=== PATIENT | female | born 1985 | race African-American/Black ===

== ENCOUNTER 2017-08-28 12:41 | Day surgery (SDC) | payer OTHER ==
[2017-08-28 13:22] VITALS: BMI 29.5
[2017-08-28 14:09] LABS: BASO % 0.3 % (0-2.0); EOS % 0.8 % (0-4.5); HEMATOCRIT 36.4 % (32.4-45.2); HEMOGLOBIN 12.2 GM/dL (10.7-15.3); LYMPH % 21.4 % (8-40); MCH 28.2 pg (25.7-33.7); MCHC 33.4 g/dl (32.0-36.0); MEAN CELL VOLUME 84.6 fl (80-96); MEAN PLT VOLUME 9.2 fl (7.5-11.1); NEUT % 71.5 % (42.8-82.8); PLATELET COUNT 225 K/MM3 (134-434); RBC 4.31 M/mm3 (3.60-5.2); RDW 13.1 % (11.6-15.6); WHITE BLOOD COUNT 9.4 K/mm3 (4.0-10.0)
[2017-08-28 14:19] LABS: INR 1.01 (0.82-1.09); PROTHROMBIN TIME (PATIENT) 11.4 SEC (9.98-11.88)
[2017-08-28 14:33] LABS: ALBUMIN 3.2 g/dl (3.4-5.0); ALK PHOS 89 U/L (45-117); ANION GAP 8 (8-16); BILIRUBIN,TOTAL 0.2 mg/dL (0.2-1.0); BLOOD UREA NITROGEN 10 mg/dL (7-18); CALCIUM 8.8 mg/dL (8.5-10.1); CHLORIDE 105 mmol/L (98-107); CO2 24 mmol/L (21-32); CREATININE 0.6 mg/dL (0.55-1.02); GLUCOSE,RANDOM 82 mg/dL (74-106); POTASSIUM 4.3 mmol/L (3.5-5.1); SGOT/AST 29 U/L (15-37); SGPT/ALT 40 U/L (12-78); SODIUM 137 mmol/L (136-145); TOT PROT 7.1 g/dl (6.4-8.2)
--- NOTE | 2017-08-28 16:32 | HP ---
Past Medical History - Primary Care Physician PCP:: Gabrielle Schafer - Admission Chief Complaint: 32,h/f , 14 weeks , twin gestation , demise of both is admitted for suction d&C History of Present Illness: pt was referred from [facility] to [address] [place] [address] She was having h.o Bleeding on & off since 05/10/17, She went to ER at [facility] 07/10/17 Sono Twin gestation , A baby 6.4 wks, positive FHR, B baby 6.4 weeks Positive FHR 07/16/17 SONO A baby 7.5 weeks Pos FHR, B baby &.4 wks Pos FHR. 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: No: Alzheimer's, CVA, Dementia, Migraine, Multiple Sclerosis, Peripheral Neuropathy, Parkinson's, Seizure, Syncope, TIA, Vertigo, Other Cardiovascular: No: AFIB, Aneurysm, Aortic Insufficiency, Aortic Stenosis, CAD, CHF, Deep Vein Thrombosis, HTN, Hyperlipdemia, [place], Mitral Insufficiency, Mitral Stenosis, Murmur, Pulmonary Hypertension, Other Pulmonary: No: Asthma, Bronchitis, Cancer, COPD, O2 Dependent, Pneumonia, Previously Intubated, Pulmonary Embolus, Pulmonary Fibrosis, Sleep Apnea, Other Gastrointestinal: No: Ascites, Cancer, Constipation, Crohn's Disease, Diverticulitis, Diverticulosis, Esophageal Varices, Gastritis, GERD, GI Bleed, Hemorrhoids, Hiatal Hernia, Inflamatory Bowel Disease, Irritable Bowel Disease, Pancreatitis, Peptic Ulcer Disease, Ulcerative Colitis, Other Hepatobiliary: No: Cirrhosis, Cholelithiasis, Cholecystitis, Choledocholithiasis , Hepatitis A, Hepatitis B, Hepatitis C, Other Renal/: No: Renal Failure, Renal Inusuff, BPH, Cancer, Hematuria, Hemodialysis , Neurogenic Bladder, Renal Calculi, UTI, Other ...: 7 ...Para: 2 (2 08/06/98 & 02/07/2002) ...Term: 2 ...Spon : 2 (last 11/2016) ...Induced : 2 ...LMP: 05/24/17 ... Weeks Gestation by Dates: 14 ...EDC by Dates: 02/28/18 ...EDC by Sono: 03/01/18 (14 weeks ) Heme/Onc: Yes: Anemia Infectious Disease: Yes: STD's (h/o chlanydia in past treated) Psych: Yes: Other (declined) Musculoskeletal: No: Bursitis, Chronic low back pain, Hemiparesis, Hemiplegia, Osteoarthritis, Paraplegia, Other Rheumatology: No: Fibromyalgia, Gout, Lupus, Rheumatoid Arthritis, Sarcoidosis, Vasculitis, Other ENT: No: Allergic Rhinitis, Sinusitis, Other Endocrine: No: Rudy's Disease, Flaquito's Disease, Diabetes Insipidus, Diabetes Mellitus, Hyperparathyroidism, Hyperthyroidism, Hypothyroidism, Osteopenia, SIADH, Other Dermatology: No: Basal Cell, Cellulitis, Eczema, Melanoma, Psoriasis, Squamous Cell, Other - Past Surgical History Past Surgical History: Yes: None Hx Myomectomy: No Hx Transabdominal Cerclage: No - Smoking History Smoking history: Former smoker Have you smoked in the past 12 months: No If you are a former smoker, when did you quit?: 2016 - Alcohol/Substance Use Hx Alcohol Use: Yes (occassional) History of Substance Use: reports: None Home Medications - Allergies Allergies/Adverse Reactions: Allergies Allergy/AdvReac Type Severity Reaction Status Date / Time shellfish derived Allergy Mild Difficulty Verified 08/28/17 13:16 Breathing - Home Medications Home Medications: Ambulatory Orders Multivitamin [One Daily] 1 each PO DAILY 08/28/17 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 Exam-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 No: Cerv Motion Tenderness Uterus: Yes: Anteverted, Enlarged (10-12 weeks size), Soft Adnexa: Normal: Bilateral, Not Palpable: Bilateral Breast(s): Yes: WNL Musculoskeletal: Yes: WNL Extremities: Yes: WNL. No: Calf Tenderness Edema: No Integumentary: Yes: WNL, Tattoos Neurological: Yes: WNL ...Motor Strength: WNL Psychiatric: Yes: WNL, Alert, Oriented Labs: CBC, BMP 08/28/17 13:58 08/28/17 13:58 Laboratory Tests 08/28/17 08/28/17 13:58 13:58 PT with INR 11.40 INR 1.01 Blood Type B POSITIVE Antibody Screen Negative Problem List - Problem (1) 14 weeks gestation of Code(s): Z3A.14 - 14 WEEKS GESTATION OF (2) Missed with demise before 20 completed weeks of gestation Code(s): O02.1 - MISSED (3) Twin Code(s): Z37.9 - OUTCOME OF DELIVERY, UNSPECIFIED (4) Twin Code(s): O30.009 - TWIN , UNSP NUM PLCNTA & AMNIO SACS, UNSP TRIMESTER Qualifiers: Trimester: first trimester Assessment/Plan 32 yrs , s/p Twin demise 14 weeks by dates & 12 weeks by sono plan Yairo D&C
[2017-08-28] MEDS ORDERED: PROPOFOL 20 ML ONE ×2 (16:51)
[2017-08-28] MEDS ORDERED: MIDAZOLAM HCL 2 MG/2 ML SINGLE DOSE VIAL ONE ×2 (16:51)
[2017-08-28] MEDS ORDERED: SUCCINYLCHOLINE CHLORIDE 200 MG/10 ML VIAL ONE (16:51)
[2017-08-28] MEDS ORDERED: LIDOCAINE HCL/PF 2% SDV 5ML VIAL ONE (16:51)
[2017-08-28] MEDS ORDERED: OXYTOCIN 10 UNITS/ML VIAL ONE ×2 (17:12→18:56)
[2017-08-28] MEDS ORDERED: PROMETHAZINE HCL 25 MG/1 ML VIAL IVPUSH PRN (17:43)
[2017-08-28] MEDS ORDERED: ONDANSETRON 4 MG/2 ML VIAL IVPUSH PRN (17:43)
[2017-08-28] MEDS ORDERED: LACTATED RINGERS SOLUTION 1,000 ML IV SCH (17:45)
--- NOTE | 2017-08-28 17:47 | OP ---
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 Cx dilated upto #36 dilator , # 12 canula used contents aspirated Surgeon: Gabrielle Schafer Anesthesiologist/COIL REWIND MACHINE OPERATOR: Enrrique Jones Anesthesia: General Specimens Removed: uterine contents Estimated Blood Loss (mls): 200 Operative Report Dictated: Yes
[2017-08-28] MEDS ORDERED: IBUPROFEN 400 MG TABLET (FP) PO PRN (17:52)
[2017-08-28] MEDS ORDERED: ACETAMINOPHEN 325 MG TABLET (FP) PO PRN (17:52)
[2017-08-28] MEDS ORDERED: oxyCODONE HCL 5 MG TABLET PO PRN (17:52)
[2017-08-28] MEDS ORDERED: KETOROLAC TROMETHAMINE 60 MG/2 ML VIAL IVPUSH ONE (18:19)
[2017-08-28] MEDS ORDERED: KETOROLAC TROMETHAMINE 60 MG/2 ML VIAL IM ONE (18:19)
[2017-08-28] MEDS ORDERED: KETOROLAC TROMETHAMINE 30 MG/1 ML VIAL ONE (18:21)
[2017-08-28] MEDS ORDERED: KETOROLAC TROMETHAMINE 30 MG/1 ML VIAL IVPUSH ONE ×2 (18:41)
[2017-08-28] MEDS ORDERED: METHYLERGONOVINE MALEATE 0.2 MG/1 ML AMP IM ONE (18:47)
[2017-08-28] MEDS ORDERED: OXYTOCIN 20 UNITS in 0.9% NS 20 UNIT/1,000 ML INFUS.BAG IV ONE (18:48)
--- NOTE | 2017-08-28 19:17 | OP ---
DATE OF OPERATION: 08/28/2017 PREOPERATIVE DIAGNOSIS: A 14-week , missed , demise twin gestation. OPERATION DONE: Dilatation, suction, curettage. SURGEON: Gabrielle Schafer MD ANESTHESIOLOGIST: Enrrique Jones MD ANESTHESIA: General. FINDINGS: This is a 32-year-old 7, para 2-0-4-2, LMP on May 24, 2017, 14 weeks' gestation, was diagnosed B baby demise on August 10 sonogram and then, on August 28, 2017, sonogram, even A baby demise, absent heart was diagnosed so patient was diagnosed with missed . She had spotting and bleeding on and off back since April. PROCEDURE: Patient was taken to the operating room table and general anesthesia was given. Lithotomy position was given. Pubis, perineum, and vagina were painted with Betadine, draped in usual manner. Pelvic examination was done. Uterus was anteverted, 12-week size. Cervix was posterior. Os was closed. Time out was done before the examination and then weighted speculum was placed. Anterior lip of the cervix was held with the single-tooth tenaculum. Cervix was dilated up to number 36 dilator and number 12 cannula was introduced into the uterine cavity. Suction was done, fluid brown color was aspirated along with the contents, and after no more contents were obtained, then the curettage was done. Estimated blood loss was 200 mL, and hemostasis was checked, and instruments were removed. Examination was done, uterus was firm. Sponge and instrument count was correct. Patient tolerated procedure well, transferred to the recovery room in stable condition. Patient had genetic counseling today and she requested to send the contents for genetic workup, chromosomal study.. Donell [id number] MTDD
[2017-08-28 20:50] VITALS: BP 115/62; PULSE 72; TEMP 98.5
--- NOTE | 2017-08-31 09:36 | PATH ---
Surgical Pathology Report Patient Name: GURVINDER BRICENO [facility]. Rec. #: [id number] /Age/Gender: 1985 (Age: 32) / F Account: [id number] Location: [facility] SURGICAL Taken: 08/28/2017 Received: 08/29/2017 Reported: 08/31/2017 Physicians: Gabrielle Schafer M.D. Specimen(s) Received PRODUCTS OF CONCEPTION Clinical History demise 14 weeks twins Final Diagnosis PRODUCTS OF CONCEPTION, DEMISE 14 WEEKS, DILATION AND SUCTION CURETTAGE: PRODUCTS OF CONCEPTION WITH SOMATIC TISSUE. CHROMOSOMAL ANALYSIS IS PENDING. RESULTS WILL BE REPORTED AN ADDENDUM. Electronically Signed Cherise Templeton M.D. Gross Description Received fresh labeled " demise 14 weeks," is a 14.5 x 10.5 x 1.8 cm aggregate of tran-red soft tissue fragments. Villous tissue and somatic tissue is identified. There is a foot identified, measuring 1.0 cm from heel to toe. A business banking representative portion of tissue is placed in RPMI solution and sent for chromosomal studies. Additional business banking representative sections are submitted in 2 cassettes. /08/29/2017 saudi08/29/2017
== END 2017-08-28 21:25 | disposition home or self-care (01) ==
LOC: JASU-SURG 12:41 → J3W 20:29 → JASU-SURG 21:25
PROVIDERS: ATTEND Obstetrics & Gynecology
PROC: 10D17ZZ Extraction of Products of Conception, Retained, Via Natural or Artificial Opening (ICD-10-PCS; principal; 2017-08-28 18:00)
DX: O02.1 Missed abortion (principal); Z3A.14 14 weeks gestation of pregnancy
CPT/HCPCS: 36415; 76817-TC; 80053; 85025; 85610; 86850; 86900; 86901

== ENCOUNTER 2020-08-08 07:29 | Emergency (ER) | payer OTHER ==
[2020-08-08 07:41] VITALS: BP 115/77; PULSE 82; TEMP 98; BMI 27.8
== END 2020-08-08 09:41 | disposition home or self-care (01) ==
LOC: JER 07:29
DX: N64.4 Mastodynia (principal); Z34.90 Encounter for supervision of normal pregnancy, unspecified, unspecified trimester
CPT/HCPCS: 84703; 99283-25

== ENCOUNTER 2020-08-27 04:41 | Day surgery (SDC) | payer OTHER ==
[2020-08-23 18:52] VITALS: BMI 28.7
[2020-08-27] MEDS ORDERED: MIDAZOLAM HCL 2 MG/2 ML SINGLE DOSE VIAL ONE (09:51)
[2020-08-27] MEDS ORDERED: PROPOFOL 20 ML ONE ×2 (09:51)
[2020-08-27] MEDS ORDERED: SUCCINYLCHOLINE CHLORIDE 200 MG/10 ML SYRINGE ONE (09:51)
[2020-08-27] MEDS ORDERED: ONDANSETRON 4 MG/2 ML VIAL IVPUSH PRN (10:01)
[2020-08-27] MEDS ORDERED: oxyCODONE HCL 5 MG TABLET PO PRN (10:01)
[2020-08-27] MEDS ORDERED: LACTATED RINGERS SOLUTION 1,000 ML IV SCH (10:15)
[2020-08-27] MEDS ORDERED: DEXAMETHASONE SOD PHOSPHATE 4 MG/1 ML VIAL ONE (10:26)
[2020-08-27] MEDS ORDERED: ONDANSETRON 4 MG/2 ML VIAL ONE (10:26)
[2020-08-27] MEDS ORDERED: KETOROLAC TROMETHAMINE 30 MG/1 ML VIAL ONE (10:30)
[2020-08-27] MEDS ORDERED: oxyCODONE HCL 5 MG TABLET ONE (12:48)
[2020-08-27 13:35] VITALS: BP 100/70; PULSE 60; TEMP 97.6
== END 2020-08-27 14:00 | disposition home or self-care (01) ==
LOC: JASU-SURG 04:41
PROVIDERS: ATTEND Obstetrics & Gynecology
PROC: 10D17ZZ Extraction of Products of Conception, Retained, Via Natural or Artificial Opening (ICD-10-PCS; principal; 2020-08-27 10:00)
DX: O02.1 Missed abortion (principal); Z3A.08 8 weeks gestation of pregnancy
CPT/HCPCS: 86850; 86900; 86901; 88305-TC; 94760

== ENCOUNTER 2020-10-31 10:22 | Emergency (ER) | payer OTHER ==
[2020-10-31 10:38] VITALS: BP 132/78; PULSE 60; TEMP 98.1; BMI 29.0
[2020-10-31 11:31] LABS: EPI CELLS >36 /uL (0-25.1); HYALINE CASTS 5 /uL (0-3.1); URINE APPEARANCE CLOUDY; URINE BACTERIA 1165 /uL (0-1359); URINE BILIRUBIN NEGATIVE (NEGATIVE); URINE COLOR YELLOW; URINE GLUCOSE (UA) NEGATIVE (NEGATIVE); URINE KETONE TRACE (NEGATIVE); URINE LEUK ESTERASE 1+ (NEGATIVE); URINE NITRITE NEGATIVE (NEGATIVE); URINE PROTEIN NEGATIVE (NEGATIVE); URINE RBC 28 /uL (0-23.9); URINE UROBILINOGEN 0.2 mg/dL (0.2-1.0); URINE WBC 31 /uL (0-25.8)
[2020-10-31 11:32] LABS: HCG,QUALITATIVE URINE Negative
== END 2020-10-31 12:13 | disposition home or self-care (01) ==
LOC: JER 10:22
DX: N30.01 Acute cystitis with hematuria (principal)
CPT/HCPCS: 81003; 84703; 87086; 99283-25

== ENCOUNTER 2020-11-08 14:42 | Emergency (ER) | payer OTHER ==
[2020-11-08 14:47] VITALS: BMI 29.2
[2020-11-08 17:14] LABS: EPI CELLS 21 /uL (0-25.1); HYALINE CASTS 1 /uL (0-3.1); PH,URINE 5.5 (5.0-8.0); URINE APPEARANCE CLEAR; URINE BACTERIA 542 /uL (0-1359); URINE BILIRUBIN NEGATIVE (NEGATIVE); URINE COLOR YELLOW; URINE GLUCOSE (UA) NEGATIVE (NEGATIVE); URINE KETONE TRACE (NEGATIVE); URINE LEUK ESTERASE TRACE (NEGATIVE); URINE NITRITE NEGATIVE (NEGATIVE); URINE PROTEIN NEGATIVE (NEGATIVE); URINE RBC 15 /uL (0-23.9); URINE WBC 36 /uL (0-25.8)
[2020-11-08 17:15] LABS: HCG,QUALITATIVE URINE Negative
[2020-11-08 19:03] VITALS: BP 116/61; PULSE 61; TEMP 98.1
== END 2020-11-08 19:10 | disposition home or self-care (01) ==
LOC: JER 14:42
DX: R30.0 Dysuria (principal); N89.8 Other specified noninflammatory disorders of vagina
CPT/HCPCS: 36415; 76775-TC; 76830-TC; 81003; 84703; 87070; 87086; 87205; 87491; 87591; 87661; 99284-25